=== PATIENT | female | born 1955 | race Caucasian/White ===

== ENCOUNTER 2017-04-23 14:00 | Observation (INO) ==
[2017-04-23] MEDS ORDERED: PHENERGAN IV ONE (14:15)
[2017-04-23] MEDS ORDERED: SODIUM CHLORIDE 0.9% INJ ONE (14:15)
[2017-04-23] MEDS ORDERED: NS 1,000 ML IV ONE ×3 (14:15→17:22)
[2017-04-23 14:40] LABS: BASO% 0.3 % (0.0-0.8); EOS# 0.15 X1000 (0.0-0.7); EOS% 0.7 % (0.0-10.0); HEMATOCRIT 45.2 % (37.0-47.0); HEMOGLOBIN 15.1 g/dL (12.0-16.0); IMM GRAN# 0.08 X1000 (0.0-0.04); IMM GRAN% 0.4 % (0.0-0.5); LYMPH# 2.09 X1000 (1.2-3.4); LYMPH% 9.8 % (20.5-51.1); MANUAL DIFF NEEDED? NO; MCH 28.7 PG (27-31); MCHC 33.4 g/dL (33-37); MCV 85.9 FL (81-99); MONO# 2.07 X1000 (0.11-0.59); MONO% 9.7 % (1.7-9.3); MPV 8.9 FL (7.4-10.4); NEUT% 79.1 % (42.2-75.2); PLT 442 X1000 (130-400); RBC 5.26 XMIL (4.2-5.4)
[2017-04-23 14:41] LABS: BE -0.7 mmoll (-3.0-3.0); BLOOD TYPE ARTERIAL; DRAW SITE R RADIAL; METHB 1.4 % (0.0-1.5); O2(CT) 19.3 mL/dL (15.0-23.0); PCO2(98.6) 40 mmHg (35-45); PO2(98.6) 62 mmHg (60-100); SAMPLE BLOOD; SAO2 93.9 % (95.0-100.0); THB 15.1 g/dL (11.5-17.4); pH(98.6) 7.39 (7.35-7.45)
[2017-04-23 14:44] LABS: ALLEN TEST YES; MODALITY ROOM AIR
[2017-04-23 15:04] LABS: AGAP 21; ALBUMIN 4.7 g/dL (3.5-5.0); ALKALINE PHOSPHATASE 94 U/L (32-104); AMYLASE 47 U/L (20-200); BUN 12 mg/dL (8-22); CALCIUM 10.3 mg/dL (8.8-10.2); CHLORIDE 97 mmol/L (98-107); COSMO 281; GOT 36 U/L (10-30); GPT 47 U/L (10-36); LIPASE 49 U/L (13-60); POTASSIUM 3.6 mmol/L (3.5-5.1); SODIUM 140 mmol/L (136-145); TCO2 23 mmol/L (25-35); TOTAL PROTEIN 8.5 g/dL (6.3-8.3)
--- NOTE | 2017-04-23 16:15 | Diag Imaging Result Doc PS360 ---
EXAM: THORAX/ABDOMEN/PELVIS INDICATION: FORCEFUL VOMITING 3 WKS, BLOOD IN VOMIT TECHNIQUE: COMPARISON: None. FINDINGS: CHEST: There is minimal dependent atelectasis at the lung bases. The lungs are grossly clear, otherwise. There is no pleural fluid collection and no pneumothorax. There is no pneumomediastinum. There are no abnormal mediastinal fluid collections. The visualized esophagus is unremarkable. The heart is normal in size. There is no significant mediastinal or hilar lymphadenopathy. ABDOMEN/PELVIS: There has been a previous cholecystectomy. There is mild intrahepatic biliary dilatation, which can be explained by the patient's postcholecystectomy status. There are a couple simple appearing renal cysts on the right. The kidneys are grossly unremarkable, otherwise. There is no evidence of bowel obstruction. There has been a previous hysterectomy. There are no focal inflammatory changes, free abdominal gas, or free fluid. The remainder of the solid viscera of the abdomen and pelvis and the remainder of the GI tract are essentially unremarkable. IMPRESSION: 1.Minimal dependent atelectasis at the lung bases. No evidence of acute chest pathology, otherwise. 2.No evidence of acute abdominal or pelvic pathology. 3.Other incidental/nonacute findings detailed above. Electronically signed by John Jorgensen 04/23/2017 4:13 PM
[2017-04-23 16:54] LABS: BILIRUBIN URINE 2+ (NEGATIVE); BLOOD URINE NEGATIVE (NEGATIVE); GLUCOSE URINE NEGATIVE (NEGATIVE); LEUKOCYTES URINE NEGATIVE (NEGATIVE); NITRITE URINE POSITIVE (NEGATIVE); SP GRAVITY URINE 1.015
[2017-04-23 17:02] LABS: URINE CULTURE PL NEEDED? YES; URINE EPITHELIAL CELLS <10 /HPF (<10); URINE RBC <10 /HPF (<10); URINE WBC <10 /HPF (<10)
[2017-04-23 17:03] LABS: CLARITY CLEAR (CLEAR); COLOR ORANGE; URINE SOURCE CATH
[2017-04-23 17:04] LABS: UROBILINOGEN URINE 3+(8 mg/dL)
[2017-04-23] MEDS ORDERED: LEVAQUIN 750 MG/D5W 750 MG/150 ML IVPB IV ONE (17:09)
--- NOTE | 2017-04-23 17:26 | PROVIDER DOCUMENTATION ---
This chart was entered by Precious Huber Scribe, acting as scribe for John Veliz PA. HPI-Abdominal Pain/GI Problem - General Chief Complaint: N/V/D Stated Complaint: vomiting Time Seen by Provider: 04/23/17 14:23 Source: patient Allergies/Adverse Reactions: Patient Allergies Allergy/AdvReac Type Severity Reaction Status Date / Time piperacillin [From Zosyn] Allergy SWELLING Verified 04/05/17 13:58 tazobactam [From Zosyn] Allergy SWELLING Verified 04/05/17 13:58 Sulfa (Sulfonamide AdvReac SWELLING Verified 04/05/17 13:58 Antibiotics) Home Medications: Home Medication List Medication Instructions Recorded Confirmed Last Taken Type Aspirin [Aspirin EC] 81 mg PO DAILY 06/04/14 06/04/14 06/03/14 History Atorvastatin Calcium [Lipitor] 10 mg PO DAILY 06/04/14 06/04/14 06/03/14 History Duloxetine [Cymbalta] 30 mg PO DAILY 06/04/14 06/04/14 06/03/14 History Esomeprazole [Nexium] 40 mg PO DAILY 06/04/14 06/04/14 06/03/14 History Levothyroxine [Synthroid] 25 microgm PO DAILY 06/04/14 06/04/14 06/03/14 History Metformin [Glucophage] 500 mg PO DAILY 06/04/14 06/04/14 06/04/14 07:00 History - History of Present Illness-ABD Nature of Presenting Problems: 61 yo F presents to the ER with complaint of intractable vomiting x3 weeks. States she has had a UTI x3 weeks as well. Cannot keep anything down, cannot keep down her medication for blood pressure or diabetes. Pt is actively vomiting upon arrival. Pt states she thinks she has "tore her esophagus because she tastes blood and has been vomiting so much". Pt also has bowel and bladder incontinence. Onset/Duration: reports: other (3 weeks) Associated Symptoms: reports: diarrhea, nausea, vomiting Review of Systems - Adult - REVIEW OF SYSTEMS - ADULT Constitutional: denies: chills, fever Cardiovascular: denies: chest pain, palpitations Respiratory: denies: cough, shortness of breath Gastrointestinal: reports: nausea, vomiting, other (incontinence). denies: abdominal pain Genitourinary: reports: incontinence. denies: hematuria Past History - Adult - PAST MEDICAL HISTORY-ADULT Review of Records: reports: Nursing Assessment Review, Medications Reviewed Cardiovascular: reports: hyperlipidemia Gastrointestinal: reports: GERD Psychiatric: reports: depression Endocrine/Immune: reports: Diabetes, thyroid disorder - PRIOR SURGERIES/PROCEDURES Surgical/Procedure History: reports: cholecystectomy, hysterectomy - IMMUNIZATION STATUS Childhood Immunizations: See Nurse Assessment Flu Vaccine: See Nurse Assessment Physical Exam-General - PHYSICAL EXAM-ADULT Initial Vital Signs Reviewed: Yes - CONSTITUTIONAL General Appearance: alert, no apparent distress, other (actively vomiting) - EYES Eyes: PERRL/EOMI, pink conjunctivae - HEAD, EARS, NOSE, MOUTH & THROAT HENMT: normocephalic/atraumatic, normal ENT inspection - NECK Neck: supple, normal inspection - RESPIRATORY Respiratory: no respiratory distress, no accessory muscle use - CARDIOVASCULAR Cardiovascular: normal peripheral pulses, regular rate, rhythm - MUSCULOSKELETAL Back Exam: no CVA tenderness, no vertebral tenderness Extremity: normal gait, normal inspection - SKIN Integumentary: normal color, warm/dry - NEUROLOGIC Neurologic: grossly normal, no motor/sensory deficits - PSYCHIATRIC Psych/Mental Status: normal mood/affect, normal thought content, normal thought process, oriented x 3 Progress - PLAN OF CARE/RESULTS Progress/Plan/Lab Results: Vital Signs - 8 hr 04/23/17 14:02 Temperature 97.9 F Pulse Rate 93 H Respiratory Rate 18 Blood Pressure 152/78 O2 Sat by Pulse Oximetry 99 Orders Category Date Time Status Saline Loc DIRECTED Care 04/23/17 14:12 Active NPO Diet 04/23/17 14:12 Active THORAX/ABDOMEN/PELVIS [CT] Stat Exams 04/23/17 14:15 Ordered ABG [RESP] Routine Lab 04/23/17 14:13 Ordered ACETONE SERUM [CHEM] Stat Lab 04/23/17 14:13 Ordered AMYLASE [CHEM] Stat Lab 04/23/17 14:12 Ordered CBC WITH ELECTRONIC DIFF [HEME] Stat Lab 04/23/17 14:12 Ordered COMPREHENSIVE METABOLIC PANEL [CHEM] Stat Lab 04/23/17 14:12 Ordered LIPASE [CHEM] Stat Lab 04/23/17 14:[address] W/POSS RFLX CULT [URINALYSIS] Stat Lab 04/23/17 14:12 Uncollected 0.9% Sodium Chloride Inj [Ns] 1,000 ml Med 04/23/17 14:15 Active IV 999 mls/hr Promethazine [Phenergan] Med 04/23/17 14:15 Discontinued 25 mg IV NOW ONE Sodium Chloride 0.9% Med 04/23/17 14:15 Discontinued 10 ml INJ NOW ONE Result Diagrams: 04/23/17 14:25 04/23/17 14:25 - CT/MRI 1 CT Study: Abdomen, Pelvis Impression: Normal (IMPRESSION: 1.Minimal dependent atelectasis at the lung bases. No evidence of acute chest pathology, otherwise. 2.No evidence of acute abdominal or pelvic pathology. 3.Other incidental/nonacute findings detailed above.) - CONSULTS/PCP/HOSPITALIST Notification #1 *Consult/PCP/Hospitalist*: Dr. Odonnell (Hospitalist) Time Discussed: 17:21 Reason/Comments: Admit to floor. Write manage transfer orders. Departure - Departure Date of Disposition Decision: 04/23/17 Time of Disposition Decision: 17:21 DIAGNOSIS: Dehydration UTI (urinary tract infection) Qualifiers: Urinary tract infection type: site unspecified Hematuria presence: without hematuria Qualified Code(s): N39.0 - Urinary tract infection, site not specified Vomiting Qualifiers: Vomiting type: unspecified Vomiting Intractability: non-intractable Nausea presence: without nausea Qualified Code(s): R11.11 - Vomiting without nausea Disposition: ADMITTED INPATIENT 09 Certified Medical Emergency: Emergent Condition: Stable Referrals and Follow-Ups: Liset Tee MD [Primary Care Provider] - - Critical Care Note This patient required my direct & personal management of CC.: No Attestation - Physician/ CHAD Attestation Patient care was provided by Advanced Practice Provider:: Yes Advanced Practice Provider:: John Veliz Advanced Practice Provider documentation review:: The Mid-level provider documentation, treatment plan and medical decision making was reviewed by the physician who agrees with all treatment and medical decision making by the MLP. This chart was documented by the indicated scribe, (Precious Huber Scribe) and accurately reflects the services I performed and decisions made by me, John Veliz PA, as attested by the provider's signature.
[2017-04-23] MEDS ORDERED: ZOFRAN IV PRN (18:54)
[2017-04-23] MEDS ORDERED: SODIUM CHLORIDE 0.9% INJ SCH (19:00)
[2017-04-23] MEDS ORDERED: LEVAQUIN 750 MG/D5W 750 MG/150 ML IVPB IV SCH (19:00)
[2017-04-23] MEDS: GENTAMICIN 80 MG/NS 80 MG/50 ML IVPB IV SCH (20:25)
[2017-04-23] MEDS: PROTONIX IV SCH (20:30)
[2017-04-23] MEDS: PRINIVIL PO SCH (20:35)
[2017-04-23] MEDS: HUMALOG DOSE (PARKWAY) SUBQ SCH (20:35)
[2017-04-24] MEDS: GENTAMICIN 80 MG/NS 80 MG/50 ML IVPB IV SCH ×4 (02:49→20:00)
[2017-04-24] MEDS: SYNTHROID PO SCH (06:23)
[2017-04-24] MEDS: PROTONIX IV SCH (06:24)
[2017-04-24] MEDS: HUMALOG DOSE (PARKWAY) SUBQ SCH ×4 (06:24→20:52)
[2017-04-24 07:06] LABS: HEMATOCRIT 42.4 % (37.0-47.0); HEMOGLOBIN 13.5 g/dL (12.0-16.0); MCH 27.9 PG (27-31); MCHC 31.8 g/dL (33-37); MCV 87.6 FL (81-99); MPV 9.2 FL (7.4-10.4); RBC 4.84 XMIL (4.2-5.4)
[2017-04-24 07:31] LABS: AGAP 13; ALBUMIN 3.9 g/dL (3.5-5.0); ALKALINE PHOSPHATASE 72 U/L (32-104); BUN 10 mg/dL (8-22); CALCIUM 9.3 mg/dL (8.8-10.2); CHLORIDE 103 mmol/L (98-107); COSMO 284; GOT 26 U/L (10-30); GPT 35 U/L (10-36); MAGNESIUM 1.6 mg/dL (1.5-2.7); POTASSIUM 3.9 mmol/L (3.5-5.1); SODIUM 143 mmol/L (136-145); TCO2 27 mmol/L (25-35); TOTAL PROTEIN 6.9 g/dL (6.3-8.3)
[2017-04-24] MEDS ORDERED: VALIUM PO PRN (08:18)
[2017-04-24] MEDS ORDERED: ZANAFLEX PO PRN (08:18)
[2017-04-24] MEDS: NEXIUM PO SCH (10:12)
[2017-04-24] MEDS: CYMBALTA PO SCH (10:12)
--- NOTE | 2017-04-24 11:14 | PROGRESS NOTE ---
DATE: 04/24/2017 SUBJECTIVE: The patient feels better today. She has had no further vomiting. OBJECTIVE: Vital Signs: Blood pressure is 135/65, with a heart rate of 76, respirations are 16, temperature is 98.4 degrees oral, with room air saturations 98%. Cardiovascular: Regular rate and rhythm S1, S2 appreciated. Pulmonary: Breath sounds are clear with no increased work of breathing noted. Gastrointestinal: Abdomen is soft, nontender, nondistended with bowel sounds in all 4 quadrants. DIAGNOSTICS: WBC is 9.07 with a hemoglobin of 13.5, hematocrit 42.4, platelets of 357,000. Sodium is 143, potassium 3.9, BUN 10, creatinine 0.4, with a glucose of 99. Urine culture revealed no growth. Blood cultures are pending. ASSESSMENT: 1. Nausea and vomiting. 2. Dehydration. 3. Possible urinary tract infection. 4. Diabetes mellitus. 5. Hypertension. 6. Hypothyroid. PLAN: The patient has had no other episodes of vomiting. She did eat bites of a diabetic diet and tolerated it well. She has tolerated sips. We will continue with her current medication regimen. Dictated by GUICHO Nieto for Clemente Odonnell MD cc: GUICHO Nieto MD
--- NOTE | 2017-04-24 11:35 | HISTORY AND PHYSICAL ---
PRIMARY CARE PHYSICIAN: Dr. Liset Tee. CHIEF COMPLAINT: Nausea, vomiting, diarrhea. HISTORY OF PRESENT ILLNESS: This is a 61-year-old female with a history of diabetes and hypertension. She presented to the emergency room complaining of intractable vomiting x3 weeks, stating that she also had a UTI during this time. She does state that during vomiting episodes she has had times of stool and urine incontinence, but she denies incontinence outside of vomiting. She denied any fever or chills. She was found to have a white count of 21.26 with hemoglobin 15, hematocrit 45, and platelets of 442,000. In the emergency room she was given a 2 L bolus with Phenergan and she is being admitted for further evaluation and treatment. PAST MEDICAL HISTORY: 1. Diabetes mellitus. 2. Gastroesophageal reflux disease. 3. Hyperlipidemia. 4. Hypothyroid. PAST SURGICAL HISTORY: 1. Cholecystectomy. 2. Hysterectomy. SOCIAL HISTORY: She denies tobacco or illicit drug use. She does drink alcohol occasionally. ALLERGIES: Zosyn and sulfa which swelling. HOME MEDICATIONS: Zanaflex 2-4 mg q.8 hours p.r.n., metformin ER 1000 mg at bedtime, lisinopril 5 mg at bedtime, Synthroid 88 mcg daily, Zetia 10 mg at bedtime, Nexium 40 mg daily, Cymbalta 60 mg daily, Valium 10 mg daily as needed, enteric-coated aspirin 81 mg at bedtime, Lipitor 40 mg at bedtime. REVIEW OF SYSTEMS: A 14 point review of systems is discussed with the patient with pertinent positives stated in the HPI. She denied chest pain, palpitations, syncope, dizziness, fever, chills, cough, shortness of breath, PND, orthopnea. She denies any black or bloody vomitus or stools, hematuria, dysuria, frequency, urgency. PHYSICAL EXAMINATION: GENERAL: This is a 61-year-old female who is lying in the bed, in no distress. VITAL SIGNS: Blood pressure is 142/69 with a heart rate of 83, respirations are 18, temperature is 98.4 degrees, with a room air saturation of 96 to 99%. HEENT: Head is normocephalic, atraumatic. Pupils equal, round, react to light. EOMs are intact. Sclerae anicteric. Mucous membranes are dry. NECK: Supple. Trachea midline. CARDIOVASCULAR: Regular rate and rhythm. S1 and S2 appreciated. PULMONARY: Breath sounds are clear with no increased work of breathing noted. GASTROINTESTINAL: Abdomen is soft, nondistended, nontender with bowel sounds in all 4 quadrants. BACK: No CVAT. No spine tenderness. MUSCULOSKELETAL: Good range of motion to joints. EXTREMITIES: No clubbing, cyanosis, or edema. Calves are nontender. Pulses are palpable x4. NEUROLOGIC: She is alert and oriented x3 with cranial nerves 2 through 12 grossly intact. DIAGNOSTICS: WBC is 21.26, with hemoglobin 15.1, hematocrit 45.2, and platelets of 442,000. Sodium is 140, potassium 3.6, BUN 12, creatinine 0.7, with a glucose of 135. AST is 36, ALT 47. Urinalysis is positive for nitrites with less than 10 red blood cells, white blood cells, and epithelial cells. Urine culture and blood cultures are pending. ASSESSMENT: 1. Nausea and vomiting. 2. Dehydration secondary to #1. 3. Urinary tract infection with culture pending. 4. Diabetes mellitus. 5. Hypertension. 6. Hypothyroid. 7. Gastroesophageal reflux disease. PLAN: The patient will be admitted to the hospital. Placed on telemetry. We will continue with IV hydration. We will continue her home medications as appropriate. She will be placed on pattern blood glucose with sliding scale insulin. We will continue Levaquin. Once cultures return antibiotics may be changed according to culture and sensitivity results. Further treatments pending hospital course. Dictated by GUICHO Nieto for Clemente Odonnell MD cc: GUICHO Nieto MD
[2017-04-24] MEDS: PRINIVIL PO SCH (20:50)
[2017-04-24] MEDS: GENTAMICIN IM SCH (20:50)
[2017-04-24] MEDS: GLUCOPHAGE XR PO SCH ×2 (20:50→20:54)
[2017-04-24] MEDS ORDERED: ASPIRIN EC PO SCH (21:00)
[2017-04-24] MEDS ORDERED: LIPITOR PO SCH (21:00)
[2017-04-24] MEDS ORDERED: ZETIA PO SCH (21:00)
[2017-04-25] MEDS: GENTAMICIN IM SCH (03:43)
[2017-04-25 03:46] VITALS: BP 137/68
[2017-04-25 06:25] LABS: HEMATOCRIT 40.8 % (37.0-47.0); HEMOGLOBIN 13.2 g/dL (12.0-16.0); MCH 28.3 PG (27-31); MCHC 32.4 g/dL (33-37); MCV 87.6 FL (81-99); MPV 9.1 FL (7.4-10.4); RBC 4.66 XMIL (4.2-5.4)
[2017-04-25] MEDS: HUMALOG DOSE (PARKWAY) SUBQ SCH (06:35)
[2017-04-25] MEDS: SYNTHROID PO SCH (06:35)
[2017-04-25] MEDS: NEXIUM PO SCH (06:35)
[2017-04-25 06:59] LABS: AGAP 13; BUN 14 mg/dL (8-22); CALCIUM 9.7 mg/dL (8.8-10.2); CHLORIDE 98 mmol/L (98-107); COSMO 281; POTASSIUM 3.7 mmol/L (3.5-5.1); SODIUM 139 mmol/L (136-145); TCO2 29 mmol/L (25-35)
[2017-04-25] MEDS: CYMBALTA PO SCH ×2 (08:39→08:41)
[2017-04-25] MEDS ORDERED: LEVAQUIN PO SCH (09:00)
--- NOTE | 2017-04-25 17:21 | DISCHARGE SUMMARY ---
ADMISSION DATE: 04/23/2017 DISCHARGE DATE: 04/25/2017 PRIMARY CARE PHYSICIAN: Liset Tee MD. DIAGNOSES: 1. Nausea, vomiting and diarrhea. 2. Dehydration secondary to #1, resolved. 3. Presumed urinary tract infection with negative culture. 4. Diabetes mellitus. 5. Hypertension. 6. Hypothyroidism. 7. Gastroesophageal reflux disease. DIAGNOSTICS: 04/23/2017: CT of the chest, abdomen and pelvis revealed no evidence of acute chest pathology. No evidence of acute abdominal or pelvic pathology. HOSPITAL COURSE: Ms. Shine presented to the emergency room complaining of nausea, vomiting and diarrhea that has been present for 3 weeks. She states she was also treated for a urinary tract infection during this time. She had some incontinence of stool and urine during the more violent vomiting episodes. She had a white count of 21 on admission for which she was treated initially with Levaquin and gentamicin. Cultures returned no growth with urine and blood cultures x2. White count did decrease to 9 overnight. Nausea and vomiting have subsided. She has had no further diarrhea. She is tolerating a diabetic diet well. Thankfully she is ready to be discharged today. DISCHARGE PHYSICAL EXAMINATION: Cardiovascular: Regular rate and rhythm. S1 and S2 are appreciated. Pulmonary: Breath sounds are clear with no increased work of breathing noted. Gastrointestinal: Abdomen is soft, nontender, nondistended with bowel sounds in all 4 quadrants. Extremities: No clubbing, cyanosis, or edema. Calves are nontender. Pulses are palpable x4. Neurologic: She is alert and oriented x3. DISCHARGE MEDICINES: 1. Lipitor 40 mg at bedtime. 2. Aspirin 81 mg at bedtime. 3. Valium 10 mg daily. 4. Cymbalta 60 mg daily. 5. Nexium 40 mg daily. 6. Zetia 10 mg at bedtime. 7. Synthroid 88 mcg daily. 8. Lisinopril 5 at bedtime. 9. Glucophage XR 1000 mg at bedtime. 10. Zanaflex 2-4 mg q.8 hours p.r.n. 11. Valtrex 1000 mg p.r.n. FOLLOWUP: 1. As the patient has had this vomiting for 3 weeks, she needs is to follow up with Gastroenterology for further outpatient workup. 2. She is to follow up with her primary care physician in the next 1-2 weeks. DISCHARGE DIET: Diabetic. DISCHARGE VITAL SIGNS: Blood pressure is 137/68 with a heart rate of 61, respirations are 20, temperature is 97.7 degrees oral, room air saturation 96%. DISPOSITION: She is being discharged home in stable condition with family members. TIME SPENT: This is a greater than 30 minute discharge. Dictated by GUICHO Nieto for Clemente Odonnell MD cc: GUICHO Nieto MD
== END 2017-04-25 10:14 | disposition home or self-care (01) ==
LOC: P.MEDSURG 14:00 → P.ED 14:00
PROVIDERS: ATTEND Family Medicine